=== PATIENT | female | born 1990 | race Caucasian/White ===

== ENCOUNTER 2020-01-14 12:34 | Emergency (ER) | payer MEDICAID ==
[~2020-01-14] VITALS: Ht 165.1 cm; Wt 72.7 kg
[2020-01-14] MEDS ORDERED: GABA300C PO (14:18)
[2020-01-14] MEDS ORDERED: BUS15T PO (14:18)
[2020-01-14] MEDS ORDERED: PROP10TA10 PO (14:18)
[2020-01-14] MEDS ORDERED: OLAN20TA3 PO (14:18)
[2020-01-14 14:21] LABS: URINE HCG NEGATIVE (NEG)
[2020-01-14 14:26] LABS: CLARITY,URINE CLOUDY (Clear); COLOR,URINE YELLOW (Yellow); GLUCOSE, URINE NEGATIVE (Neg); KETONES,URINE NEGATIVE (Neg); LEUKOCYTE ESTERASE ,URINE LARGE (Neg); NITRITES, URINE NEGATIVE (Neg); OCCULT BLOOD,URINE SMALL (Neg); PH,URINE 5.5 (4.8-8.0); PROTEIN,URINE NEGATIVE (Neg); UROBILINOGEN,URINE 0.2 E.U/dL (0.2-1.0)
[2020-01-14 14:35] LABS: URINE AMPHETAMINE SCREEN NEGATIVE (Neg); URINE BARBITUATE SCREEN NEGATIVE (Neg); URINE BENZODIAZEPINES SCREEN NEGATIVE (Neg); URINE CANNABINOID SCREEN NEGATIVE (Neg); URINE COCAINE SCREEN NEGATIVE (Neg); URINE METHADONE SCREEN NEGATIVE (Neg); URINE OPIATE SCREEN NEGATIVE (Neg); URINE PHENCYCLIDINE SCREEN NEGATIVE (Neg)
[2020-01-14 14:38] LABS: UA COLLECTION TYPE CLN CATCH MIDSTREAM
[2020-01-14 14:39] LABS: SQUAMOUS EPITHELIAL CELL,UR MANY /LPF (FEW)
[2020-01-14 14:40] LABS: BACTERIA,URINE 2+ /HPF (Neg); RBC,URINE 0-2 /HPF (0-2); WBC,URINE 50-100 /HPF (0-4)
--- NOTE | 2020-01-14 14:41 | NUR ---
PT HAS GIVEN PERMISSION FOR HER MOTHER, WILDER SAENZ, TO RECEIVE INFORMATION REGARDING PT'S CARE AND STATUS. MOTHER'S PHONE # [phone]
[2020-01-14 14:53] LABS: BASOPHILS # (AUTO) 0.1 X10'3 (0-0.2); BASOPHILS % (AUTO) 0.7 % (0-1); EOSINOPHILS # (AUTO) 0.2 X10'3 (0-0.9); EOSINOPHILS % (AUTO) 2.5 % (0-6); HEMATOCRIT 38.7 % (35.0-45.0); HEMOGLOBIN 13.1 g/dl (12.0-16.0); LYMPHOCYTES # (AUTO) 1.9 X10'3 (1.1-4.8); LYMPHOCYTES % (AUTO) 23.7 % (21-51); MEAN CORPUSCULAR HEMOGLOBIN 31.6 PG (27.0-31.0); MEAN CORPUSCULAR HGB CONC 33.9 g/dL (33.0-36.5); MEAN CORPUSCULAR VOLUME 93.3 FL (78-98); MEAN PLATELET VOLUME 7.2 FL (7.4-10.4); MONOCYTES # (AUTO) 0.5 X10'3 (0-0.9); MONOCYTES % (AUTO) 5.8 % (2-12); NEUTROPHILS # (AUTO) 5.5 X10'3 (1.8-7.7); NEUTROPHILS % (AUTO) 67.3 % (42-75); PLATELET COUNT 280 X10'3 (140-440); RED BLOOD COUNT 4.15 X10'6 (4.20-5.60); RED CELL DISTRIBUTION WIDTH 14.2 % (11.5-14.5); WHITE BLOOD COUNT 8.2 X10'3 (4.5-11.0)
[2020-01-14 15:04] LABS: ALANINE AMINOTRANSFERASE 69 U/L (12-78); ALBUMIN/GLOBULIN RATIO 1.3 (1.1-1.5); ALKALINE PHOSPHATASE 97 IU/L (46-116); ANION GAP 7 (8-16); ASPARTATE AMINO TRANSFERASE 25 U/L (10-37); BILIRUBIN,TOTAL 0.9 MG/DL (0.1-1.0); BLOOD UREA NITROGEN 12 MG/DL (7-18); BUN/CREATININE RATIO 18.8 (6.6-38.0); CALCIUM 8.6 MG/DL (8.5-10.1); CHLORIDE 108 MMOL/L (99-107); CREATININE 0.64 MG/DL (0.40-0.90); GLUCOSE 88 MG/DL (70-104); POTASSIUM 3.8 MMOL/L (3.5-5.1); SODIUM 141 MMOL/L (135-145); TOTAL CARBON DIOXIDE 25.6 MMOL/L (24-32); TOTAL PROTEIN 7.2 G/DL (6.4-8.2); eGFR > 90 ML/MIN
[2020-01-14 15:15] LABS: ETHANOL < 0.010 GM/DL (0.0-0.010)
[2020-01-14] MEDS ORDERED: sulfamethoxazole/trimethoprim DS (800/160mg) tablet PO SCH (15:15)
--- NOTE | 2020-01-14 15:23 | NUR ---
SENT PACKET [facility]
--- NOTE | 2020-01-14 15:45 | NUR ---
REPORT RECEIVED, CARE ASSUEMED. PT IS PLEASANT, COOPERATIVE AND NON-CONFRONTATIONAL. PT IS HERE AFTER BEING RELEASED FOR A MH FACILITY IN [place] DUE TO CONTINUEATION OF AUDITORY HALLUCINATIONS. PT STATES THAT THE VOICES SHE HEARS ARE JUST NOISES, DENIES ANY VOICES TELLING HER TO HARM HERSELF OR OTHERS. PT STATES THAT SHE FEELS THAT SHE WAS RELEASED TOO SOON AND CAME HER FOR ADDITION HELP. PT DENIES ANY SI/HI. MED REC LOGGED, FAXED TO PHARMACY AND PERSONAL HOME MEDICATIONS TAKEN TO THE PHARMACY
[2020-01-14 17:09] VITALS: BP 127/87
--- NOTE | 2020-01-14 18:08 | NUR ---
[facility] HAD A CONFERENCE CALL WITH PT AND HER MOTHER, BOTH ARE WILLING TO MAKE A SAFETY PLAN WITH FOLLOWUP AT [facility] AFTER DISCHARGE LATER THIS WEEK OR EARLY NEXT WEEK. DR MORALES WILL BE CONSULTED BY TRES FROM [facility] FOR DISCHARGE HOME WITH PT'S MOTHER.
--- NOTE | 2020-01-14 18:16 | NUR ---
PT IS BEING RELEASED HOME TO HER MOTHER BY [facility] WITH A SAFETY PLAN IN PLACE, FOLLOW-UP WITH [facility] AND WILL CONTINUE TAKING HER MEDICATIONS DIRECTED. DR MORALES AT BEDSIDE FOR DISCHARGE EVALUATION.
[2020-01-14] MEDS ORDERED: propranolol 10mg tablet PO SCH (20:00)
[2020-01-14] MEDS ORDERED: gabapentin 300mg capsule PO SCH (20:00)
[2020-01-14] MEDS ORDERED: busPIRone 15mg tablet PO SCH (21:00)
[2020-01-14] MEDS ORDERED: olanzapine 10mg tablet PO SCH (21:00)
== END 2020-01-14 18:45 ==
LOC: ER 12:36
DX: F29 Unspecified psychosis not due to a substance or known physiological condition (principal); F20.9 Schizophrenia, unspecified; F31.9 Bipolar disorder, unspecified; Z87.891 Personal history of nicotine dependence; Z88.0 Allergy status to penicillin; Z88.8 Allergy status to other drugs, medicaments and biological substances; Z79.899 Other long term (current) drug therapy
CPT/HCPCS: 36415; 80053; 80305; 80320; 81001; 81025; 84443; 85025; 99285

== ENCOUNTER 2020-01-19 11:36 | Emergency (ER) | payer MEDICAID ==
[~2020-01-19] VITALS: Ht 165.1 cm; Wt 72.7 kg
[~2020-01-19 11:36] MED LIST: BUS15T PO; GABA300C PO; OLAN20TA3 PO; PROP10TA10 PO
[2020-01-19 11:48] VITALS: BP 109/76
== END 2020-01-19 12:00 | disposition home or self-care (01) ==
LOC: ER 11:37
DX: R44.0 Auditory hallucinations (principal); F41.9 Anxiety disorder, unspecified; F20.9 Schizophrenia, unspecified; F29 Unspecified psychosis not due to a substance or known physiological condition; Z88.0 Allergy status to penicillin; Z88.8 Allergy status to other drugs, medicaments and biological substances; Z79.899 Other long term (current) drug therapy
CPT/HCPCS: 99281

== ENCOUNTER 2020-05-25 21:01 | Emergency (ER) | payer MEDICAID ==
[~2020-05-25] VITALS: Ht 167.6 cm; Wt 84.6 kg
[2020-05-25 21:26] VITALS: BP_DIAS 82
--- NOTE | 2020-05-25 22:30 | NUR ---
During pt assessement, pt denied SI and HI. Pt did admit to auditory paranoia hallucinations. PT stated "the voices are telling me that there is a torture room here." Reassurance of safety was given to pt from nurse.
[2020-05-25 22:35] LABS: BASOPHILS # (AUTO) 0.1 X10'3 (0-0.2); BASOPHILS % (AUTO) 0.6 % (0-1); EOSINOPHILS # (AUTO) 0.3 X10'3 (0-0.9); EOSINOPHILS % (AUTO) 3.1 % (0-6); HEMATOCRIT 43.7 % (35.0-45.0); HEMOGLOBIN 14.6 g/dl (12.0-16.0); LYMPHOCYTES # (AUTO) 2.9 X10'3 (1.1-4.8); LYMPHOCYTES % (AUTO) 28.2 % (21-51); MEAN CORPUSCULAR HEMOGLOBIN 31.2 PG (27.0-31.0); MEAN CORPUSCULAR HGB CONC 33.4 g/dL (33.0-36.5); MEAN CORPUSCULAR VOLUME 93.4 FL (78-98); MEAN PLATELET VOLUME 7.1 FL (7.4-10.4); MONOCYTES # (AUTO) 0.7 X10'3 (0-0.9); MONOCYTES % (AUTO) 6.8 % (2-12); NEUTROPHILS # (AUTO) 6.4 X10'3 (1.8-7.7); NEUTROPHILS % (AUTO) 61.3 % (42-75); PLATELET COUNT 294 X10'3 (140-440); RED BLOOD COUNT 4.68 X10'6 (4.20-5.60); RED CELL DISTRIBUTION WIDTH 14.2 % (11.5-14.5); WHITE BLOOD COUNT 10.4 X10'3 (4.5-11.0)
[2020-05-25 22:43] LABS: ALANINE AMINOTRANSFERASE 149 U/L (12-78); ALBUMIN 3.8 G/DL (3.4-5.0); ALBUMIN/GLOBULIN RATIO 1.1 (1.1-1.5); ALKALINE PHOSPHATASE 112 IU/L (46-116); ANION GAP 11 (8-16); ASPARTATE AMINO TRANSFERASE 42 U/L (10-37); BILIRUBIN,TOTAL 0.7 MG/DL (0.1-1.0); BLOOD UREA NITROGEN 17 MG/DL (7-18); BUN/CREATININE RATIO 18.9 (6.6-38.0); CALCIUM 8.9 MG/DL (8.5-10.1); CHLORIDE 105 MMOL/L (99-107); ETHANOL < 0.010 GM/DL (0.0-0.010); GLUCOSE 117 MG/DL (70-104); SODIUM 143 MMOL/L (135-145); TOTAL CARBON DIOXIDE 27.1 MMOL/L (24-32); TOTAL PROTEIN 7.4 G/DL (6.4-8.2); eGFR 74 ML/MIN
[2020-05-25 23:24] LABS: CLARITY,URINE SLIGHTLY CLOUDY (Clear); COLOR,URINE YELLOW (Yellow); GLUCOSE, URINE NEGATIVE (Neg); KETONES,URINE NEGATIVE (Neg); LEUKOCYTE ESTERASE ,URINE SMALL (Neg); NITRITES, URINE NEGATIVE (Neg); OCCULT BLOOD,URINE NEGATIVE (Neg); PROTEIN,URINE NEGATIVE (Neg); UROBILINOGEN,URINE 0.2 E.U/dL (0.2-1.0)
[2020-05-25 23:25] LABS: URINE HCG NEGATIVE (NEG)
[2020-05-25 23:27] LABS: UA COLLECTION TYPE CLN CATCH MIDSTREAM
[2020-05-25 23:34] LABS: BACTERIA,URINE 1+ /HPF (Neg); MUCUS STRANDS MANY /LPF (Neg); RBC,URINE 0-2 /HPF (0-2); SQUAMOUS EPITHELIAL CELL,UR MANY /LPF (FEW); TRICHOMONAS,URINE FEW /HPF (NEGATIVE)
[2020-05-25 23:35] LABS: WBC CLUMPS,URINE FEW /HPF (NEGATIVE)
[2020-05-25 23:36] LABS: URINE AMPHETAMINE SCREEN POSITIVE (Neg); URINE BARBITUATE SCREEN NEGATIVE (Neg); URINE BENZODIAZEPINES SCREEN NEGATIVE (Neg); URINE CANNABINOID SCREEN NEGATIVE (Neg); URINE COCAINE SCREEN NEGATIVE (Neg); URINE METHADONE SCREEN NEGATIVE (Neg); URINE OPIATE SCREEN NEGATIVE (Neg); URINE PHENCYCLIDINE SCREEN NEGATIVE (Neg)
[2020-05-25] MEDS ORDERED: CEPH-585 PO (23:47)
[2020-05-25] MEDS ORDERED: cephalexin 500mg capsule PO SCH (23:49)
[2020-05-25] MEDS ORDERED: cephalexin 500mg capsule PO ONE (23:49)
--- NOTE | 2020-05-26 05:39 | NUR ---
packet sent to [facility]
[2020-05-26 06:01] VITALS: BP_SYST 88
--- NOTE | 2020-05-26 06:35 | NUR ---
Patient laying in bed supine with her eyes open. No distress observed. Continue to monitor.
[2020-05-26] MEDS ORDERED: GABA300C PO (07:19)
[2020-05-26] MEDS ORDERED: HYDR50CA5 PO (07:19)
[2020-05-26] MEDS ORDERED: CEPH-585 PO (07:22)
[2020-05-26] MEDS ORDERED: hydrOXYzine 25 MG tablet PO PRN (07:45)
[2020-05-26] MEDS ORDERED: cephalexin 500mg capsule PO SCH ×2 (08:00)
[2020-05-26] MEDS ORDERED: cephalexin 250mg capsule PO SCH (08:00)
[2020-05-26] MEDS ORDERED: busPIRone 15mg tablet PO SCH (08:00)
[2020-05-26] MEDS ORDERED: gabapentin 300mg capsule PO SCH ×2 (08:00→21:00)
--- NOTE | 2020-05-26 08:09 | NUR ---
Patient talking on phone and getting upset with mother. Breakfast at bedside. Continue to monitor.
[2020-05-26] MEDS ORDERED: acetaminophen 325mg tablet PO ONE (08:20)
--- NOTE | 2020-05-26 08:35 | NUR ---
Patient took meds in her mouth then spit them back out stating they taste like matches. Patient proceeded to smell the pills. Patient swallowed the Tylenol but wants to wait to take the others after she eats. Continue to monitor.
--- NOTE | 2020-05-26 08:47 | NUR ---
Laron RENTERIA, evaluating patient. Patient tearful. Continue to monitor.
[2020-05-26] MEDS ORDERED: OLANZapine 5mg rapidly disint. tablet PO ONE (10:25)
== END 2020-05-26 11:11 | disposition home or self-care (01) ==
LOC: ER 21:01
DX: R45.851 Suicidal ideations (principal); N39.0 Urinary tract infection, site not specified; R44.0 Auditory hallucinations; F15.10 Other stimulant abuse, uncomplicated; Z72.89 Other problems related to lifestyle; Z88.0 Allergy status to penicillin; Z88.8 Allergy status to other drugs, medicaments and biological substances; Z79.2 Long term (current) use of antibiotics; Z79.899 Other long term (current) drug therapy
CPT/HCPCS: 36415; 80053; 80305; 80320; 81001; 81025; 85025; 99285

== ENCOUNTER 2020-07-07 10:22 | Emergency (ER) | payer MEDICAID ==
[~2020-07-07] VITALS: Ht 167.6 cm; Wt 88.6 kg
[~2020-07-07 10:22] MED LIST changes: +CEPH-585 PO; +HYDR50CA5 PO; -OLAN20TA3 PO; -PROP10TA10 PO
[2020-07-07] MEDS ORDERED: normal saline 1000ML IV soln IVB ONE ×2 (10:35→12:35)
[2020-07-07 10:53] LABS: BASOPHILS # (AUTO) 0.1 X10'3 (0-0.2); BASOPHILS % (AUTO) 0.6 % (0-1); EOSINOPHILS # (AUTO) 0.3 X10'3 (0-0.9); EOSINOPHILS % (AUTO) 2.6 % (0-6); HEMATOCRIT 40.9 % (35.0-45.0); HEMOGLOBIN 13.7 g/dl (12.0-16.0); LYMPHOCYTES # (AUTO) 2.1 X10'3 (1.1-4.8); LYMPHOCYTES % (AUTO) 17.5 % (21-51); MEAN CORPUSCULAR HEMOGLOBIN 31.5 PG (27.0-31.0); MEAN CORPUSCULAR HGB CONC 33.6 g/dL (33.0-36.5); MEAN CORPUSCULAR VOLUME 93.8 FL (78-98); MEAN PLATELET VOLUME 7.4 FL (7.4-10.4); MONOCYTES # (AUTO) 0.9 X10'3 (0-0.9); MONOCYTES % (AUTO) 7.6 % (2-12); NEUTROPHILS # (AUTO) 8.6 X10'3 (1.8-7.7); NEUTROPHILS % (AUTO) 71.7 % (42-75); PLATELET COUNT 247 X10'3 (140-440); RED BLOOD COUNT 4.36 X10'6 (4.20-5.60); RED CELL DISTRIBUTION WIDTH 14.2 % (11.5-14.5)
[2020-07-07 11:12] LABS: ALANINE AMINOTRANSFERASE 35 U/L (12-78); ALBUMIN 3.8 G/DL (3.4-5.0); ALBUMIN/GLOBULIN RATIO 1.2 (1.1-1.5); ALKALINE PHOSPHATASE 98 IU/L (46-116); ANION GAP 11 (8-16); ASPARTATE AMINO TRANSFERASE 25 U/L (10-37); BILIRUBIN,TOTAL 0.7 MG/DL (0.1-1.0); BLOOD UREA NITROGEN 15 MG/DL (7-18); BUN/CREATININE RATIO 21.4 (6.6-38.0); CALCIUM 8.3 MG/DL (8.5-10.1); CHLORIDE 105 MMOL/L (99-107); GLUCOSE 166 MG/DL (70-104); POTASSIUM 3.4 MMOL/L (3.5-5.1); SODIUM 142 MMOL/L (135-145); TOTAL CARBON DIOXIDE 25.8 MMOL/L (24-32); TOTAL PROTEIN 7.1 G/DL (6.4-8.2); eGFR > 90 ML/MIN
[2020-07-07 11:26] LABS: ETHANOL < 0.010 GM/DL (0.0-0.010)
[2020-07-07 11:29] LABS: CREATINE KINASE 1258 U/L (26-192)
[2020-07-07 12:41] LABS: CLARITY,URINE CLOUDY (Clear); COLOR,URINE YELLOW (Yellow); GLUCOSE, URINE NEGATIVE (Neg); KETONES,URINE NEGATIVE (Neg); LEUKOCYTE ESTERASE ,URINE NEGATIVE (Neg); NITRITES, URINE NEGATIVE (Neg); OCCULT BLOOD,URINE NEGATIVE (Neg); PH,URINE 5.5 (4.8-8.0); PROTEIN,URINE TRACE mg/dl (Neg); UROBILINOGEN,URINE 0.2 E.U/dL (0.2-1.0)
[2020-07-07 12:43] LABS: UA COLLECTION TYPE STRAIGHT CATH
[2020-07-07 12:47] LABS: MUCUS STRANDS MANY /LPF (Neg); SQUAMOUS EPITHELIAL CELL,UR FEW /LPF (FEW)
[2020-07-07 12:48] LABS: AMORPHOUS URATES 3+; BACTERIA,URINE 1+ /HPF (Neg); RBC,URINE 0-2 /HPF (0-2); WBC,URINE 0-4 /HPF (0-4)
[2020-07-07 13:05] LABS: URINE AMPHETAMINE SCREEN POSITIVE (Neg); URINE BARBITUATE SCREEN NEGATIVE (Neg); URINE BENZODIAZEPINES SCREEN NEGATIVE (Neg); URINE CANNABINOID SCREEN POSITIVE (Neg); URINE COCAINE SCREEN NEGATIVE (Neg); URINE METHADONE SCREEN NEGATIVE (Neg); URINE OPIATE SCREEN NEGATIVE (Neg); URINE PHENCYCLIDINE SCREEN NEGATIVE (Neg)
[2020-07-07 13:33] VITALS: BP 111/60
== END 2020-07-07 13:35 | disposition home or self-care (01) ==
LOC: ER 10:23
DX: E86.0 Dehydration (principal); R53.83 Other fatigue; R40.0 Somnolence; F20.9 Schizophrenia, unspecified; F15.90 Other stimulant use, unspecified, uncomplicated; Z72.89 Other problems related to lifestyle; Z88.0 Allergy status to penicillin; Z88.8 Allergy status to other drugs, medicaments and biological substances; Z79.2 Long term (current) use of antibiotics; Z79.899 Other long term (current) drug therapy
CPT/HCPCS: 36415; 70450; 71045; 80053; 80305; 80320; 81001; 82550; 83605; 84443; 85025; 87040; 93005; 96360; 96361; 99285; J7030

== ENCOUNTER 2021-02-26 01:02 | Emergency (ER) | payer MEDICAID ==
[~2021-02-26] VITALS: Ht 167.6 cm; Wt 80.0 kg
[2021-02-26 01:23] VITALS: BP 136/91
--- NOTE | 2021-02-26 01:40 | NUR ---
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 pt slow to answer questions and will respond by saying "sorry, it is just so funny". pt states voices in head are telling jokes to pt. pt denies any SI, self harm or thoughts of harming others.
--- NOTE | 2021-02-26 02:27 | NUR ---
pt states "you are taking too long so I'm leaving". advised pt to stay for dr exam and medications but pt said no and walked to lobby.
== END 2021-02-26 02:32 | disposition left against medical advice (07) ==
LOC: ER 01:02
DX: Z00.8 Encounter for other general examination (principal); Z53.21 Procedure and treatment not carried out due to patient leaving prior to being seen by health care provider

== ENCOUNTER 2021-03-04 14:11 | Emergency (ER) | payer MEDICAID ==
[~2021-03-04] VITALS: Ht 167.6 cm; Wt 81.8 kg
[2021-03-04 15:29] LABS: BASOPHILS # (AUTO) 0.1 X10'3 (0-0.2); BASOPHILS % (AUTO) 0.8 % (0-1); EOSINOPHILS # (AUTO) 0.2 X10'3 (0-0.9); EOSINOPHILS % (AUTO) 2.5 % (0-6); HEMATOCRIT 41.2 % (35.0-45.0); HEMOGLOBIN 13.8 g/dl (12.0-16.0); LYMPHOCYTES # (AUTO) 2.4 X10'3 (1.1-4.8); LYMPHOCYTES % (AUTO) 33.1 % (21-51); MEAN CORPUSCULAR HEMOGLOBIN 30.9 PG (27.0-31.0); MEAN CORPUSCULAR HGB CONC 33.5 g/dL (33.0-36.5); MEAN PLATELET VOLUME 7.4 FL (7.4-10.4); MONOCYTES # (AUTO) 0.4 X10'3 (0-0.9); NEUTROPHILS # (AUTO) 4.1 X10'3 (1.8-7.7); NEUTROPHILS % (AUTO) 57.6 % (42-75); PLATELET COUNT 332 X10'3 (140-440); RED BLOOD COUNT 4.48 X10'6 (4.20-5.60); RED CELL DISTRIBUTION WIDTH 14.2 % (11.5-14.5); WHITE BLOOD COUNT 7.2 X10'3 (4.5-11.0)
[2021-03-04 15:32] LABS: ALANINE AMINOTRANSFERASE 41 U/L (12-78); ALBUMIN 4.1 G/DL (3.4-5.0); ALBUMIN/GLOBULIN RATIO 1.1 (1.1-1.5); ALKALINE PHOSPHATASE 119 IU/L (46-116); ANION GAP 10 (8-16); ASPARTATE AMINO TRANSFERASE 20 U/L (10-37); BILIRUBIN,TOTAL 0.9 MG/DL (0.1-1.0); BLOOD UREA NITROGEN 12 MG/DL (7-18); BUN/CREATININE RATIO 16.2 (6.6-38.0); CALCIUM 8.5 MG/DL (8.5-10.1); CHLORIDE 105 MMOL/L (99-107); CREATININE 0.74 MG/DL (0.40-0.90); GLUCOSE 90 MG/DL (70-104); POTASSIUM 3.8 MMOL/L (3.5-5.1); SODIUM 141 MMOL/L (135-145); TOTAL CARBON DIOXIDE 25.9 MMOL/L (24-32); TOTAL PROTEIN 7.7 G/DL (6.4-8.2); eGFR > 90 ML/MIN
[2021-03-04 15:41] LABS: ETHANOL < 0.010 GM/DL (0.0-0.010)
[2021-03-04] MEDS ORDERED: OLAN10TA73 PO (18:50)
[2021-03-04] MEDS ORDERED: RISP3TAB63 PO (18:50)
--- NOTE | 2021-03-04 20:44 | NUR ---
The patient is a 30 year old female who was brought in by [facility] on a 5150 from the [facility] after she was unable to maintain herself there 2nd to erratic behavior. She was cooperative with moving to the ER overflow and completing the evening assessment. She is a poor historian but per [facility] she has been in treatment in the past with a diagnosis of Schizoaffective disorder and stimulent dependence. She reports A/V hallucinations. She reports that she has been seeing black spots and people and she is hearing voices telling her to harm herself. Her replies were very minimal and vague for the most part. When asked about drugs or ETOH she stated, "I was using meth a little bit" She was poorly oriented but did know the year was 2021. SHe stated that her moods have been "pretty grouchy" she is unsure if she is and she is aware that a urine sample is needed.
[2021-03-04 21:27] LABS: URINE HCG NEGATIVE (NEG)
[2021-03-04 21:32] LABS: CLARITY,URINE SLIGHTLY CLOUDY (Clear); COLOR,URINE YELLOW (Yellow); GLUCOSE, URINE NEGATIVE (Neg); KETONES,URINE NEGATIVE (Neg); LEUKOCYTE ESTERASE ,URINE NEGATIVE (Neg); NITRITES, URINE NEGATIVE (Neg); OCCULT BLOOD,URINE TRACE-INTACT (Neg); PROTEIN,URINE TRACE mg/dl (Neg)
[2021-03-04 21:36] LABS: UA COLLECTION TYPE CLN CATCH MIDSTREAM
[2021-03-04 21:42] LABS: URINE AMPHETAMINE SCREEN POSITIVE (Neg); URINE BARBITUATE SCREEN NEGATIVE (Neg); URINE BENZODIAZEPINES SCREEN NEGATIVE (Neg); URINE CANNABINOID SCREEN POSITIVE (Neg); URINE COCAINE SCREEN NEGATIVE (Neg); URINE METHADONE SCREEN NEGATIVE (Neg); URINE OPIATE SCREEN NEGATIVE (Neg); URINE PHENCYCLIDINE SCREEN NEGATIVE (Neg)
--- NOTE | 2021-03-04 21:55 | NUR ---
Packet sent to [facility]
[2021-03-04 22:00] LABS: BACTERIA,URINE 1+ /HPF (Neg); MUCUS STRANDS FEW /LPF (Neg); SQUAMOUS EPITHELIAL CELL,UR FEW /LPF (FEW); TRANSITIONAL EPI CELLS,URINE FEW /HPF
--- NOTE | 2021-03-04 22:24 | NUR ---
The patient appears to be sleeping
--- NOTE | 2021-03-04 23:46 | NUR ---
The patient appears to be sleeping
--- NOTE | 2021-03-05 01:14 | NUR ---
The patient appears to be sleeping
--- NOTE | 2021-03-05 03:03 | NUR ---
THe patient was up briefly and asked for and received food items. She now appears to be back asleep
--- NOTE | 2021-03-05 05:00 | NUR ---
The patient appears to be sleeping. She was awake at times.
--- NOTE | 2021-03-05 07:26 | NUR ---
Packet refaxed to [facility] per their request. They did not recieve it last night.
--- NOTE | 2021-03-05 16:02 | NUR ---
Pt accepted by [facility] at [address] Knight. Pt to be picked up at 20:45 tonight.
[2021-03-05] MEDS ORDERED: ibuprofen 200mg tablet PO ONE (17:35)
[2021-03-05] MEDS ORDERED: ibuprofen tablet 400 MG TABLET PO ONE (17:35)
--- NOTE | 2021-03-05 20:46 | NUR ---
[facility] transport here for the pt pt awakened to dress. medications obtained from pharmacy and given [facility] unit. shoes given to him as well.
[2021-03-05] MEDS ORDERED: olanzapine 10mg tablet PO SCH (21:00)
[2021-03-05 21:11] VITALS: BP 115/71
== END 2021-03-05 21:23 ==
LOC: ER 14:11
DX: F79 Unspecified intellectual disabilities (principal); Z20.822 Contact with and (suspected) exposure to COVID-19; F15.10 Other stimulant abuse, uncomplicated; F20.9 Schizophrenia, unspecified; Z72.89 Other problems related to lifestyle; Z59.00 Homelessness unspecified; Z88.0 Allergy status to penicillin; Z88.8 Allergy status to other drugs, medicaments and biological substances; Z79.899 Other long term (current) drug therapy
CPT/HCPCS: 36415; 80053; 80305; 80320; 81001; 81025; 84443; 85025; 87635; 99285; C9803

== ENCOUNTER 2022-02-09 11:56 | Emergency (ER) | payer MEDICAID ==
[~2022-02-09] VITALS: Ht 167.6 cm; Wt 70.0 kg
[~2022-02-09 11:56] MED LIST changes: -BUS15T PO; -CEPH-585 PO; -GABA300C PO; -HYDR50CA5 PO; +OLAN10TA73 PO
[2022-02-09 12:41] LABS: BASOPHILS # (AUTO) 0.1 X10'3 (0-0.2); BASOPHILS % (AUTO) 0.6 % (0-1); EOSINOPHILS # (AUTO) 0.4 X10'3 (0-0.9); EOSINOPHILS % (AUTO) 5.1 % (0-6); HEMATOCRIT 41.6 % (35.0-45.0); HEMOGLOBIN 13.8 g/dl (12.0-16.0); LYMPHOCYTES # (AUTO) 2.3 X10'3 (1.1-4.8); LYMPHOCYTES % (AUTO) 26.9 % (21-51); MEAN CORPUSCULAR HEMOGLOBIN 30.9 PG (27.0-31.0); MEAN CORPUSCULAR HGB CONC 33.1 g/dL (33.0-36.5); MEAN CORPUSCULAR VOLUME 93.5 FL (78-98); MEAN PLATELET VOLUME 7.3 FL (7.4-10.4); MONOCYTES # (AUTO) 0.6 X10'3 (0-0.9); MONOCYTES % (AUTO) 7.1 % (2-12); NEUTROPHILS # (AUTO) 5.2 X10'3 (1.8-7.7); NEUTROPHILS % (AUTO) 60.3 % (42-75); PLATELET COUNT 251 X10'3 (140-440); RED BLOOD COUNT 4.45 X10'6 (4.20-5.60); RED CELL DISTRIBUTION WIDTH 13.9 % (11.5-14.5); WHITE BLOOD COUNT 8.6 X10'3 (4.5-11.0)
[2022-02-09 13:02] LABS: ALANINE AMINOTRANSFERASE 30 U/L (12-78); ALBUMIN/GLOBULIN RATIO 1.3 (1.1-1.5); ALKALINE PHOSPHATASE 84 IU/L (46-116); ANION GAP 8 (8-16); ASPARTATE AMINO TRANSFERASE 20 U/L (10-37); BILIRUBIN,TOTAL 0.8 MG/DL (0.1-1.0); BLOOD UREA NITROGEN 12 MG/DL (7-18); BUN/CREATININE RATIO 14.6 (6.6-38.0); CHLORIDE 102 MMOL/L (99-107); CREATININE 0.82 MG/DL (0.40-0.90); ETHANOL < 0.010 GM/DL (0.0-0.010); GLUCOSE 142 MG/DL (70-104); POTASSIUM 3.8 MMOL/L (3.5-5.1); SODIUM 140 MMOL/L (135-145); TOTAL CARBON DIOXIDE 29.9 MMOL/L (24-32); TOTAL PROTEIN 7.1 G/DL (6.4-8.2); eGFR 81 ML/MIN
[2022-02-09 13:41] LABS: URINE HCG NEGATIVE (NEG)
[2022-02-09 13:44] LABS: URINE AMPHETAMINE SCREEN POSITIVE (Neg); URINE BARBITUATE SCREEN NEGATIVE (Neg); URINE BENZODIAZEPINES SCREEN NEGATIVE (Neg); URINE CANNABINOID SCREEN POSITIVE (Neg); URINE COCAINE SCREEN NEGATIVE (Neg); URINE METHADONE SCREEN NEGATIVE (Neg); URINE OPIATE SCREEN NEGATIVE (Neg); URINE PHENCYCLIDINE SCREEN NEGATIVE (Neg)
--- NOTE | 2022-02-09 13:45 | NUR ---
Mother's #[phone]. Pt is connected with [facility]. Her last injection was Abilifirineo Maintena 01/26/2022. Pt changed into green scrubs. She requested food and was given a sandwich and drank some milk.
--- NOTE | 2022-02-09 16:53 | NUR ---
Called [facility] for MAR. Per Haydee, medical office assistant the pt is only on Abilify Maintena ER 300mg per month. Her last injection 01/26/22.
--- NOTE | 2022-02-09 17:58 | NUR ---
Packet sent to [facility] office.
--- NOTE | 2022-02-09 19:00 | NUR ---
One to one with the patient to assess severity of psychotic symptoms. The patient was giving a psychotic stare. She had difficulty answering any kind of questions. Her replies were almost to the point of word devante, "I can't really think. I think someone is eating my head. nigger toe . The devil the dark cheryle" She is gesturing in the air with her arms being held up in the air. She was then observed laying on her back with her legs straight up in the air and jiggling them.
[2022-02-09] MEDS ORDERED: OLANZapine 2.5MG tablet PO STA (19:32)
[2022-02-09] MEDS ORDERED: QUEtiapine 25mg tablet PO ONE (19:35)
--- NOTE | 2022-02-09 20:28 | NUR ---
The patient's symptoms were discussed with Jeff CALIX and medications were ordered.
--- NOTE | 2022-02-09 22:18 | NUR ---
The patient appears to be lightly sleeping
--- NOTE | 2022-02-09 23:28 | NUR ---
The patient appears to be depressed
--- NOTE | 2022-02-10 01:04 | NUR ---
The patient appears to be sleeping
--- NOTE | 2022-02-10 02:55 | NUR ---
The patient appears to be sleeping
--- NOTE | 2022-02-10 04:43 | NUR ---
Nurse to nurse with [facility], [place]. They are requesting medical clearance, UA and TSH. made aware.
--- NOTE | 2022-02-10 05:11 | NUR ---
The patient appears to be sleeping
[2022-02-10] MEDS ORDERED: ibuprofen tablet 400 MG TABLET PO ONE (06:00)
--- NOTE | 2022-02-10 06:05 | NUR ---
The patient requesting motrin for a headache and orders received. The patient has been made aware that another urine specimen is needed.
[2022-02-10 07:12] LABS: CLARITY,URINE CLOUDY (Clear); COLOR,URINE YELLOW (Yellow); GLUCOSE, URINE NEGATIVE (Neg); KETONES,URINE NEGATIVE (Neg); LEUKOCYTE ESTERASE ,URINE SMALL (Neg); NITRITES, URINE NEGATIVE (Neg); OCCULT BLOOD,URINE NEGATIVE (Neg); PH,URINE 6.5 (4.8-8.0); PROTEIN,URINE NEGATIVE (Neg); UROBILINOGEN,URINE 0.2 E.U/dL (0.2-1.0)
--- NOTE | 2022-02-10 07:16 | NUR ---
Assumed care of patient sleeping a change of shift. Patient did give a urine sample which was sent to the lab. Will fax packet when urine comes back.
[2022-02-10 07:42] LABS: UA COLLECTION TYPE VOIDED
[2022-02-10 07:45] LABS: BACTERIA,URINE 4+ /HPF (Neg); RBC,URINE NONE SEEN /HPF (0-2); SQUAMOUS EPITHELIAL CELL,UR MANY /LPF (FEW)
[2022-02-10 07:46] LABS: TRANSITIONAL EPI CELLS,URINE FEW /HPF; WBC CLUMPS,URINE FEW /HPF (NEGATIVE)
--- NOTE | 2022-02-10 09:09 | NUR ---
Received phone call from the [facility] office and patient has been accepted to [facility] and should be transported by 15:00.
--- NOTE | 2022-02-10 09:22 | NUR ---
Patient up to the restroom.
--- NOTE | 2022-02-10 12:18 | NUR ---
Breaking RN for lunch. Received report.
[2022-02-10 12:40] LABS: CLARITY,URINE CLOUDY (Clear); COLOR,URINE YELLOW (Yellow); GLUCOSE, URINE NEGATIVE (Neg); KETONES,URINE NEGATIVE (Neg); LEUKOCYTE ESTERASE ,URINE MODERATE (Neg); NITRITES, URINE POSITIVE (Neg); OCCULT BLOOD,URINE NEGATIVE (Neg); PROTEIN,URINE TRACE mg/dl (Neg)
[2022-02-10 12:48] LABS: UA COLLECTION TYPE CLN CATCH MIDSTREAM
[2022-02-10 12:49] LABS: BACTERIA,URINE 4+ /HPF (Neg); MUCUS STRANDS MANY /LPF (Neg); SQUAMOUS EPITHELIAL CELL,UR MANY /LPF (FEW); WBC,URINE 50-100 /HPF (0-4)
[2022-02-10 12:50] LABS: RBC,URINE 0-2 /HPF (0-2)
[2022-02-10 14:52] VITALS: BP 96/61
== END 2022-02-10 14:56 | disposition still patient (30) ==
LOC: ER 11:56
DX: F79 Unspecified intellectual disabilities (principal); Z20.822 Contact with and (suspected) exposure to COVID-19; F20.9 Schizophrenia, unspecified; F15.10 Other stimulant abuse, uncomplicated; Z88.5 Allergy status to narcotic agent; Z88.1 Allergy status to other antibiotic agents; Z79.899 Other long term (current) drug therapy
CPT/HCPCS: 36415; 80053; 80305; 80320; 81001; 81025; 84443; 85025; 87811; 99285

== ENCOUNTER 2022-12-13 13:11 | Emergency (ER) | payer MEDICAID ==
[~2022-12-13] VITALS: Ht 167.6 cm; Wt 63.0 kg
[2022-12-13] MEDS ORDERED: OLANZapine **IM** 10 mg inj. IM ONE ×2 (13:50→17:25)
--- NOTE | 2022-12-13 14:38 | NUR ---
Patient brought back from the Main ED. Patient is manic and hyperverbal. Word Salad. Appears to be responding to internal stimuli. Patient received an injection of Zyprexa. Continue to monitor.
[2022-12-13 16:11] LABS: URINE HCG NEGATIVE (NEG)
[2022-12-13 16:14] LABS: BILIRUBIN,URINE NEGATIVE (Neg); CLARITY,URINE CLOUDY (Clear); COLOR,URINE STRAW (Yellow); GLUCOSE, URINE NEGATIVE (Neg); KETONES,URINE NEGATIVE (Neg); LEUKOCYTE ESTERASE ,URINE NEGATIVE (Neg); NITRITES, URINE NEGATIVE (Neg); OCCULT BLOOD,URINE NEGATIVE (Neg); PROTEIN,URINE NEGATIVE (Neg); UROBILINOGEN,URINE 0.2 E.U/dL (0.2-1.0)
--- NOTE | 2022-12-13 16:19 | NUR ---
Patient is calm and sleeping. No distress observed. Continue to monitor.
[2022-12-13 16:21] LABS: SQUAMOUS EPITHELIAL CELL,UR MODERATE /LPF (FEW); UA COLLECTION TYPE VOIDED
[2022-12-13 16:22] LABS: BACTERIA,URINE 4+ /HPF (Neg); RBC,URINE 0-2 /HPF (0-2); TRANSITIONAL EPI CELLS,URINE FEW /HPF
[2022-12-13] MEDS ORDERED: NO HOME MEDS (16:24)
--- NOTE | 2022-12-13 16:34 | NUR ---
Patient having a conversation with her voices. "I don't know! Well for some reason she bought it. You know what I mean. Are you a vampire. I need to get sleep right now Leslie! I'm not a species, like a vampire. Leo Soni does not want me to burn. That's my aunt Trini. You want to me sir." Patient possibly needs another antipsychotic medication. Continue to monitor.
[2022-12-13 16:39] LABS: BASOPHILS # (AUTO) 0.1 X10'3 (0-0.2); EOSINOPHILS # (AUTO) 0.4 X10'3 (0-0.9); EOSINOPHILS % (AUTO) 5.5 % (0-6); HEMATOCRIT 38.3 % (35.0-45.0); HEMOGLOBIN 12.8 g/dl (12.0-16.0); LYMPHOCYTES # (AUTO) 2.3 X10'3 (1.1-4.8); LYMPHOCYTES % (AUTO) 29.9 % (21-51); MEAN CORPUSCULAR HEMOGLOBIN 31.7 PG (27.0-31.0); MEAN CORPUSCULAR HGB CONC 33.5 g/dL (33.0-36.5); MEAN CORPUSCULAR VOLUME 94.6 FL (78-98); MEAN PLATELET VOLUME 7.6 FL (7.4-10.4); MONOCYTES # (AUTO) 0.7 X10'3 (0-0.9); MONOCYTES % (AUTO) 8.7 % (2-12); NEUTROPHILS # (AUTO) 4.3 X10'3 (1.8-7.7); NEUTROPHILS % (AUTO) 54.9 % (42-75); PLATELET COUNT 262 X10'3 (140-440); RED BLOOD COUNT 4.05 X10'6 (4.20-5.60); RED CELL DISTRIBUTION WIDTH 13.9 % (11.5-14.5); WHITE BLOOD COUNT 7.7 X10'3 (4.5-11.0)
[2022-12-13 16:53] LABS: URINE AMPHETAMINE SCREEN POSITIVE (Neg); URINE BARBITUATE SCREEN NEGATIVE (Neg); URINE BENZODIAZEPINES SCREEN NEGATIVE (Neg); URINE CANNABINOID SCREEN POSITIVE (Neg); URINE COCAINE SCREEN NEGATIVE (Neg); URINE METHADONE SCREEN NEGATIVE (Neg); URINE OPIATE SCREEN NEGATIVE (Neg); URINE PHENCYCLIDINE SCREEN NEGATIVE (Neg)
[2022-12-13 17:04] LABS: ALANINE AMINOTRANSFERASE 34 U/L (12-78); ALBUMIN 3.6 G/DL (3.4-5.0); ALBUMIN/GLOBULIN RATIO 1.4 (1.1-1.5); ALKALINE PHOSPHATASE 74 IU/L (46-116); ANION GAP 8 (8-16); ASPARTATE AMINO TRANSFERASE 26 U/L (10-37); BILIRUBIN,TOTAL 0.4 MG/DL (0.1-1.0); BLOOD UREA NITROGEN 15 MG/DL (7-18); BUN/CREATININE RATIO 21.4 (10.0-20.0); CALCIUM 9.1 MG/DL (8.5-10.1); CHLORIDE 106 MMOL/L (99-107); GLUCOSE 107 MG/DL (70-104); POTASSIUM 3.4 MMOL/L (3.5-5.1); SODIUM 141 MMOL/L (135-145); TOTAL CARBON DIOXIDE 27.5 MMOL/L (24-32); TOTAL PROTEIN 6.2 G/DL (6.4-8.2); eCRCL 107 ML/MIN; eGFR > 90 ML/MIN
[2022-12-13 17:17] LABS: ETHANOL < 10 MG/DL (<10); LIPASE 46 U/L (16-77); THYROID STIMULATING HORMONE 2.11 ulU/ml (0.34-4.50)
[2022-12-13] MEDS ORDERED: diphenhydrAMINE 50 mg/ml inj IM ONE (17:25)
--- NOTE | 2022-12-13 18:10 | NUR ---
Luis Enrique Acosta, faxed packet.
--- NOTE | 2022-12-13 18:15 | NUR ---
RN gave patient another 10 mg I.M. Zyprexa and 50 mg Benadryl. Patient was happy and willing to get the injection. Continue to monitor.
--- NOTE | 2022-12-13 18:41 | NUR ---
Patient asking for more Zyprexa and something to help her sleep. RN explained she recently just got both and she needs to relax and let the medication work. Patient went back to her bed. Continue to monitor.
--- NOTE | 2022-12-13 19:46 | NUR ---
Patient laying awake in bed. Fidgeting now and then. Continue to monitor.
--- NOTE | 2022-12-13 21:35 | NUR ---
[facility]. Patient accepted by [facility] and will be transported Monday.
--- NOTE | 2022-12-13 21:44 | NUR ---
Patient appears to be sleeping supine. No distress observed. Respirations equal and nonlabored. Continue to monitor.
--- NOTE | 2022-12-13 23:21 | NUR ---
Patient continues to sleep supine. RN placed a warm blanket over patient. No distress observed. Continue to monitor.
--- NOTE | 2022-12-14 01:00 | NUR ---
Recived report from NANDO Mckenzie. Pt asleep on left side. RR even and unlabored. Monitor for safety.
--- NOTE | 2022-12-14 02:08 | NUR ---
Pt asleep on right side. Pt not in distress, monitor for safety.
--- NOTE | 2022-12-14 03:55 | NUR ---
Pt asleep in supine position. No respitory issues. Pt in NAD. Monitor for safety.
--- NOTE | 2022-12-14 04:44 | NUR ---
Pt up to the bathroom. Steady gait. Monitor for safety.
--- NOTE | 2022-12-14 05:38 | NUR ---
Pt is sleeping on her right side. RR even and unlabored, in NAD. Monitor for safety.
--- NOTE | 2022-12-14 06:30 | NUR ---
Received pt. sleeping, rr are even and unlabored.
--- NOTE | 2022-12-14 08:08 | NUR ---
Pt. was discharged from the unit to [facility]. She was escorted out accompanied by a [facility] armor reconnaissance vehicle driver who will be transporting her and security. Pt's belongings were inventoried and returned to her. This gag writer reviewed pt's discharge instructions and she reported understanding. Pt. is able to contract for safety.
[2022-12-14 10:28] VITALS: BP 102/71; PULSE 90; RESP 12; TEMP 98.6; O2SAT 98
== END 2022-12-14 10:31 ==
LOC: ER 13:11
DX: F29 Unspecified psychosis not due to a substance or known physiological condition (principal); Z20.822 Contact with and (suspected) exposure to COVID-19; F19.959 Other psychoactive substance use, unspecified with psychoactive substance-induced psychotic disorder, unspecified; F20.9 Schizophrenia, unspecified; F15.90 Other stimulant use, unspecified, uncomplicated; Z56.0 Unemployment, unspecified; Z59.00 Homelessness unspecified; Z88.0 Allergy status to penicillin; Z88.8 Allergy status to other drugs, medicaments and biological substances
CPT/HCPCS: 36415; 80053; 80305; 80320; 81001; 81025; 83690; 84443; 85025; 87077; 87088; 87186; 87811; 96372; 99285; J1200; J3490